=== PATIENT | male | born 1965 | race Hispanic/Latino ===

== ENCOUNTER → 2024-04-13 | Outpatient (CLI) | payer BC, OTHER ==
--- NOTE | 2024-04-13 14:34 | HMCIMG ---
CHEST 2VWS HISTORY: Shortness of breath COMPARISON: None FINDINGS: Frontal and lateral projections of the chest were obtained. There is no acute pulmonary infiltrates or failure. The heart is not enlarged. Prominent interstitial markings are seen. Degenerative changes are seen of the thoracolumbar spine. IMPRESSION: 1. No acute pulmonary infiltrates.
== END | disposition home or self-care (01) ==
LOC: RAH 10:37
PROVIDERS: ATTEND Internal Medicine
DX: M47.815 Spondylosis without myelopathy or radiculopathy, thoracolumbar region (principal); R06.02 Shortness of breath
CPT/HCPCS: 71046

== ENCOUNTER → 2024-04-30 | Outpatient (CLI) | payer OTHER ==
--- NOTE | 2024-04-30 12:10 | HMCIMG ---
CT CORONARY CALCIFICATION SCORING: Anatomic images were reviewed. The calcium score is being generated and reported separately. This report is for the visualized anatomy only. Visualized portions of the lungs are clear. Hilar and mediastinal structures appear normal. Osseous structures are unremarkable. Impression: 1. Negative noncardiac anatomic findings. 2. The calcium score is 183.6 consistent with a moderate degree of calcified plaque. This is 75th percentile for a patient this age. CT was performed with one or more following dose reduction techniques: automated exposure control, adjustment of the mA and kv according to patient's size, or use of a iterative reconstruction technique.
== END | disposition home or self-care (01) ==
LOC: EDUNIT# 09:00 → RAH 09:06
PROVIDERS: ATTEND Internal Medicine Infectious Disease
DX: Z13.6 Encounter for screening for cardiovascular disorders (principal)
CPT/HCPCS: 75571